=== PATIENT | male | born 1980 | race American Indian/Alaskan Native ===

== ENCOUNTER 2017-10-24 11:33 | Emergency (ER) | payer MEDICARE | END 2017-10-24 12:00 | disposition left against medical advice (07) | LOC: ED 11:33 | DX: Z53.21 Procedure and treatment not carried out due to patient leaving prior to being seen by health care provider (principal) ==

== ENCOUNTER 2018-03-22 13:15 | Emergency (ER) | payer MEDICARE ==
[2018-03-22 13:22] VITALS: BP 209/106
[2018-03-22] MEDS ORDERED: CATAPRES PO ONE (13:49)
[2018-03-22 13:57] LABS: Basophils # (Auto) 0.1 K/mm3 (0.0-0.1); Basophils % (Auto) 0.9 % (0.0-1.8); Eosinophils # (Auto) 0.1 K/mm3 (0.0-0.4); Eosinophils % (Auto) 0.7 % (0.0-4.3); Hematocrit 32.6 % (35.5-45.6); Hemoglobin 10.6 gm/dl (11.8-15.2); Lymphocytes # (Auto) 1.1 K/mm3 (1.2-5.4); Lymphocytes % (Auto) 10.9 % (13.4-35.0); Mean Corpuscular HGB Conc 33 % (32-34); Mean Corpuscular Hemoglobin 29 pg (28-32); Mean Corpuscular Volume 89 fl (84-94); Monocytes # (Auto) 0.4 K/mm3 (0.0-0.8); Monocytes % (Auto) 4.1 % (0.0-7.3); Platelet Count 328 K/mm3 (140-440); Red Blood Count 3.66 M/mm3 (3.65-5.03); Red Cell Distribution Width 16.2 % (13.2-15.2)
--- NOTE | 2018-03-22 14:05 | Emergency Department Report ---
HPI - General Chief Complaint: Chest Pain Time Seen by Provider: 03/22/18 13:40 - HPI HPI: Room 9 The patient is a 37-year-old male presenting with a chief complaint of chest tightness. The patient states yesterday he developed tightness across his chest associated with nausea and vomiting. The patient states he also developed tremulousness. The patient states he feels is due to his potassium being too high. The patient states he last received dialysis 03/18/2018. The patient states his chest tightness has resolved and he currently gets a score of. The patient states he had a stress test and cardiac catheterization performed last year at [facility] Location: Chest Duration: Constant since last night Quality: Tightness Severity: Currently 0/10 Modifying factors: [see above] Context: [see above] Mode of transportation: [not driving] ED Past Medical Hx - Past Medical History Previous Medical History?: Yes Hx Hypertension: Yes Hx Renal Disease: Yes (Dialysis MWF) Additional medical history: HERNIA - Surgical History Additional Surgical History: Left upper extremity fistula - Family History Family history: no significant - Social History Smoking Status: Former Smoker (none 12 years) Substance Use Type: Marijuana - Medications Home Medications: Home Medications Medication Instructions Recorded Confirmed Last Taken Type Carvedilol [Coreg] 25 mg PO BID #60 tablet 11/14/15 01/16/16 Rx Diltiazem Cd [Cardizem CD] 240 mg PO QDAY #30 cap 11/14/15 01/16/16 Rx cloNIDine [Catapres] 0.2 mg PO BID #60 tablet 11/14/15 01/16/16 Rx hydrALAZINE [Apresoline TAB] 50 mg PO Q6HR #120 tablet 11/14/15 01/16/16 Rx ED Review of Systems ROS: Stated complaint: C/P Other details as noted in HPI Constitutional: denies: diaphoresis Eyes: denies: eye pain ENT: denies: throat pain Respiratory: denies: shortness of breath Cardiovascular: chest pain Gastrointestinal: nausea, vomiting Genitourinary: denies: dysuria Musculoskeletal: denies: back pain Neurological: denies: headache Physical Exam - Physical Exam Vital Signs: Vital Signs 03/22/18 13:20 Temperature 98.2 F Pulse Rate 112 H Respiratory 20 Rate Blood Pressure 209/106 O2 Sat by Pulse 98 Oximetry Physical Exam: GENERAL: The patient is well-developed well-nourished []. [] HEENT: Normocephalic. Atraumatic. Extraocular motions are intact. Patient has moist mucous membranes. NECK: Supple. No meningitic signs are noted. There is no adenopathy noted. CHEST/LUNGS: Clear to auscultation. There is no respiratory distress noted. HEART/CARDIOVASCULAR: Regular. There is no tachycardia. There is no gallop rub or murmur. ABDOMEN: Abdomen is soft, nontender. Patient has normal bowel sounds. There is no abdominal distention. SKIN: There is no rash. There is no edema. There is no diaphoresis. NEURO: The patient is awake, alert, and oriented. The patient is cooperative. The patient has no focal neurologic deficits. The patient has normal speech and gait. MUSCULOSKELETAL: There is no tenderness or deformity. There is no limitation range of motion. There is no evidence of acute injury. ED Course Vital Signs 03/22/18 13:20 Temperature 98.2 F Pulse Rate 112 H Respiratory 20 Rate Blood Pressure 209/106 O2 Sat by Pulse 98 Oximetry - Consultations Consultation #1: 03/22/18 14:20 Attempted to obtain cardiac cath report from [facility]. [facility] states the patient did not receive a cardiac catheterization at their facility ED Medical Decision Making - Lab Data Result diagrams: 03/22/18 13:43 03/22/18 13:43 Laboratory Tests 03/22/18 03/22/18 13:43 13:43 WBC 9.6 RBC 3.66 Hgb 10.6 L Hct 32.6 L MCV 89 MCH 29 MCHC 33 RDW 16.2 H Plt Count 328 Lymph % (Auto) 10.9 L [place] % (Auto) 4.1 Eos % (Auto) 0.7 Baso % (Auto) 0.9 Lymph # 1.1 L [place] # 0.4 Eos # 0.1 Baso # 0.1 Seg Neutrophils % 83.4 H Seg Neutrophils # 8.0 H Sodium 135 L Potassium 4.0 Chloride 93.0 L Carbon Dioxide 21 L Anion Gap 25 BUN 50 H Creatinine 18.4 H Estimated GFR 4 BUN/Creatinine Ratio 3 Glucose 87 Calcium 8.5 Troponin T 0.098 H - EKG Data -: EKG Interpreted by Pr EKG shows normal: sinus rhythm Rate: normal - EKG Data When compared to previous EKG there are: previous EKG unavailable Interpretation: subendocardial ischemia (ST depression in leads 2, 3, aVF, V4, V5, V6) - Radiology Data Radiology results: image reviewed (chest x-ray) interpreted by me: Chest [id number]. No focal infiltrates - Medical Decision Making I discussed with the patient and family at bedside at length my concern for his presentation as well as ST segment depression seen on EKG. I explained to them that [facility] states that they have no record of a cardiac catheterization. The patient is is alert and oriented 4. Family was attempted to convince the patient to stay but he is adamant that he will leave AGAINST MEDICAL ADVICE. The patient verbalized understanding of increased morbidity and/or mortality should he leave the hospital AGAINST MEDICAL ADVICE. Family also acknowledged understanding. Patient advised to return to the hospital should he change his mind - Differential Diagnosis chest pain, hypertensive urgency, pericarditis, GERD Critical care attestation.: If time is entered above; I have spent that time in minutes in the direct care of this critically ill patient, excluding procedure time. ED Disposition Clinical Impression: Chest pain, Elevated troponin, Hypertensive urgency, End stage renal disease Disposition: [id number] LEFT AGAINST MED ADVICE Is pt being admited?: No Does the pt Need Aspirin: Yes Condition: Undetermined Instructions: Chest Pain (ED) Referrals: EMILY VALENCIA MD [Primary Care Provider] - 3-5 Days Time of Disposition: 14:54 (patient leaving AMA)
[2018-03-22 14:12] LABS: Calcium 8.5 mg/dL (8.4-10.2)
[2018-03-22] MEDS ORDERED: ASPIRIN PO ONE (14:54)
--- NOTE | 2018-03-22 15:11 | XRay Report ---
FINAL REPORT PROCEDURE: XR CHEST 1V AP TECHNIQUE: Chest radiograph anteroposterior view. CPT 80289 HISTORY: chest pain COMPARISON: No prior studies are available for comparison. FINDINGS: Heart: Enlarged cardiac silhouette Mediastinum/Vessels: Normal. Lungs/Pleural space: No infiltrate, effusion, or pneumothorax is seen. Bony thorax: No acute osseous abnormality. Life support devices: None. IMPRESSION: Enlarged cardiac silhouette
== END 2018-03-22 15:09 | disposition left against medical advice (07) ==
LOC: ED 13:15
DX: R07.89 Other chest pain (principal); R11.2 Nausea with vomiting, unspecified; I13.2 Hypertensive heart and chronic kidney disease with heart failure and with stage 5 chronic kidney disease, or end stage renal disease; N18.6 End stage renal disease; F12.10 Cannabis abuse, uncomplicated; Z99.2 Dependence on renal dialysis; Z98.890 Other specified postprocedural states
CPT/HCPCS: 36415; 71045; 80048; 84484; 85025; 93005; 93010